=== PATIENT | female | born 1980 | race Caucasian/White ===

== ENCOUNTER 2020-10-11 21:40 | Emergency (ER) | payer OTHER ==
[~2020-10-11] VITALS: Ht 170.2 cm; Wt 79.8 kg
[2020-10-11] MEDS ORDERED: CITALOPRAM HBR10 MG PO (22:39)
[2020-10-11] MEDS ORDERED: LORYNA 3 MG-0.1 EACH PO (22:40)
[2020-10-12] MEDS ORDERED: ONDANSETRON ODT8 MG PO (01:09)
== END 2020-10-12 01:39 | disposition home or self-care (01) ==
LOC: ED 21:40
DX: S06.0X0A Concussion without loss of consciousness, initial encounter (principal); W22.8XXA Striking against or struck by other objects, initial encounter; Z79.899 Other long term (current) drug therapy
CPT/HCPCS: 70450; 72125; 80053; 82150; 82553; 83605; 83690; 85025; 96374; 96375; 99284-25; G0480; J1200; J1885; J2405; J2550; J2765; J7030